=== PATIENT | female | born 1960 | race Two or more races ===

== ENCOUNTER 2016-06-25 11:36 | Emergency (ER) | payer SELFPAY ==
[~2016-06-25] VITALS: Ht 162.6 cm; Wt 67.2 kg
[2016-06-25] MEDS ORDERED: ONDANSETRON 2MG/ML, 2ML IVPush ONE (12:00)
[2016-06-25] MEDS ORDERED: SODIUM CHLORIDE FLUSH 10ML SYR IVF ONE (12:00)
[2016-06-25] MEDS ORDERED: SODIUM CHLORIDE 0.9% 1,000ML IVBOLUS ONE (12:00)
[2016-06-25] MEDS ORDERED: MORPHINE SULFATE 4 MG/ML, 1ML ONE ×2 (12:08→13:00)
[2016-06-25] MEDS ORDERED: ONDANSETRON 2MG/ML, 2ML ONE (12:08)
[2016-06-25] MEDS: MORPHINE SULFATE 4 MG/ML, 1ML IVPush PRN ×2 (12:12→13:11)
[2016-06-25 12:33] LABS: ASPARTATE AMINO TRANSFERASE 17 U/L (15-37); BLOOD UREA NITROGEN 13 mg/dL (7-18)
[2016-06-25 12:56] LABS: PATH.CAST-FLAG NOT PRESENT; SPERM-FLAG NOT PRESENT; SRC-FLAG NOT PRESENT; XTAL-FLAG NOT PRESENT; YLC-FLAG NOT PRESENT
[2016-06-25] MEDS ORDERED: CEFTRIAXONE PMX 1GM/50ML 50 ML IV ONE (14:00)
[2016-06-25] MEDS ORDERED: CEFTRIAXONE PMX 1GM/50ML 50 ML ONE (14:06)
[2016-06-25 17:27] VITALS: BP 115/67
== END 2016-06-25 17:26 | disposition home or self-care (01) ==
LOC: ED 15:32
DX: N20.2 Calculus of kidney with calculus of ureter (principal)
CPT/HCPCS: 36415; 74177; 80053; 81001; 83690; 85025; 87077; 87086; 87186; 96361; 96365; 96375; 96376; 99285; J0696; J2405; J7030